=== PATIENT | female | born 2000 | race Caucasian/White ===

== ENCOUNTER 2020-12-17 10:32 | Emergency (ER) | payer MEDICAID, OTHER ==
--- NOTE | 2020-12-17 11:09 | EDM.PDOC ---
ED HPI GENERAL MEDICAL PROBLEM - General Chief Complaint: Skin Complaint Stated Complaint: RASH ON ARM Time Seen by Provider: 12/17/20 10:41 Source of Information: Reports: Patient History Limitations: Reports: No Limitations - History of Present Illness INITIAL COMMENTS - FREE TEXT/NARRATIVE: 28-year-old female approximately 4 weeks presents for rash to left arm. Patient first noted a few days ago and seems to be spreading up the arm and with new lesion noted today on right hand. Rash is small discrete erythematous areas which feels like [id number] and are tender to palpation. No fevers. 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: Musculoskeletal History: Reports: None Neurological History: Reports: None Psychiatric History: Reports: None Endocrine/Metabolic History: Reports: None Hematologic History: Reports: None Immunologic History: Reports: None Oncologic (Cancer) History: Reports: None Dermatologic History: Reports: None - Infectious Disease History Infectious Disease History: Reports: None - Past Surgical History Head Surgeries/Procedures: Reports: None HEENT Surgical History: Reports: Adenoidectomy, Oral Surgery, Tonsillectomy Female Surgical History: Reports: Section Social & Family History - Family History Family Medical History: No Pertinent Family History - Tobacco Use Tobacco Use Status *Q: Never Tobacco User - Caffeine Use Caffeine Use: Reports: Coffee - Recreational Drug Use Recreational Drug Use: No ED ROS GENERAL - Review of Systems Review Of Systems: Comprehensive ROS is negative, except as noted in HPI. ED EXAM, SKIN/RASH Exam: See Below Exam Limited By: No Limitations General Appearance: Alert, WD/WN, No Apparent Distress Ears: Hearing Grossly Normal Throat/Mouth: Normal Oropharynx, Normal Voice, No Airway Compromise Head: Atraumatic, Normocephalic Respiratory/Chest: No Respiratory Distress, Lungs Clear, Normal Breath Sounds, No Accessory Muscle Use Cardiovascular: Normal Peripheral Pulses, Regular Rate, Rhythm Extremities: Normal Inspection Neurological: Alert, Normal Cognition, Normal Gait Psychiatric: Normal Affect, Normal Mood Skin: Warm, Dry, Intact, Other (multiple 1-cm erytheatmous lesions on L hand spreading up forearm, blanching, TTP) Course - Vital Signs Last Recorded V/S: Last Vital Signs Temp 97.5 F 12/17/20 10:57 Pulse 97 12/17/20 10:57 Resp 16 12/17/20 10:57 BP 109/69 12/17/20 10:57 Pulse Ox 99 12/17/20 10:57 - Re-Assessments/Exams Free Text/Narrative Re-Assessment/Exam: 12/17/20 11:19 Will treat for viral exanthem; likely coxsackie vs HSV. Will give topical steroids. Will give dermatology f/u Departure - Departure Time of Disposition: 11:20 Disposition: Home, Self-Care 01 Condition: Good Clinical Impression: Viral exanthem - Discharge Information Prescriptions: Hydrocortisone [Hydrocortisone 2.5% Crm] 30 gm TOP TID 10 Days #2 tube Instructions: Rash, Adult Referrals: PCP,None [Primary Care Provider] - Forms: ED Department Discharge Additional Instructions: Your rash is most consistent with a viral exanthem. This is most likely from coxsackie or HSV virus. I've prescribed a topical cream to [facility]. This can be contagious. You can always follow-up with dermatology if this isn't improving in the next several days. Usually coxsackie virus lasks about 7-10 days. HSV can last weeks. [facility] [address] [place] [address] [id number] The following information is given to patients seen in the emergency department who are being discharged to home. This information is to outline your options for follow-up care. We provide all patients seen in our emergency department with a follow-up referral. The need for follow-up, as well as the timing and circumstances, are variable depending upon the specifics of your emergency department visit. If you don't have a primary care physician on staff, we will provide you with a referral. We always advise you to contact your personal physician following an emergency department visit to inform them of the circumstance of the visit and for follow-up with them and/or the need for any referrals to a consulting specialist. The emergency department will also refer you to a specialist when appropriate. This referral assures that you have the opportunity for follow-up care with a sp ecialist. All of these measure are taken in an effort to provide you with optimal care, which includes your follow-up. Under all circumstances we always encourage you to contact your private physicia n who remains a resource for coordinating your care. When calling for follow-up care, please make the office aware that this follow-up is from your recent emergency room visit. If for any reason you are refused follow-up, please contact the Emergency Department at and asked to speak to the emergency department charge nurse. Please follow up with your primary care physician. If you do not have a primary care physician, see below: [facility] [address] [place] [id number] [facility] [address] [place] [id number] [facility] [address] [place] [id number] Sepsis Event Note (ED) - Evaluation Sepsis Screening Result: No Definite Risk - Focused Exam Vital Signs: Vital Signs Temp Pulse Resp BP Pulse Ox 12/17/20 10:57 97.5 F 97 16 109/69 99
== END 2020-12-17 11:37 | disposition home or self-care (01) ==
LOC: MW.ED 10:32
DX: O98.511 Other viral diseases complicating pregnancy, first trimester (principal); B09 Unspecified viral infection characterized by skin and mucous membrane lesions; Z3A.01 Less than 8 weeks gestation of pregnancy
CPT/HCPCS: 99282